=== PATIENT | female | born 1960 | race Caucasian/White ===

== ENCOUNTER 2017-04-30 12:21 | Emergency (ER) | payer OTHER ==
[2017-04-30 12:26] VITALS: TEMP 97.9
--- NOTE | 2017-04-30 12:33 | CPEKG ---
Heart Rate: 81 RR Interval: 741 P-R Interval: 176 QRSD Interval: 82 QT Interval: 360 QTC Interval: 418 P Monroe: 54 QRS Monroe: -60 T Wave Monroe: 24 EKG Severity - ABNORMAL ECG - EKG Impression: SINUS RHYTHM EKG Impression: LEFT ANTERIOR FASCICULAR BLOCK Electronically Signed By: Donna Jay 30-Apr-2017 14:52:50
[2017-04-30 13:04] LABS: PLATELET COUNT 332 10^3/uL (150-400)
--- NOTE | 2017-04-30 13:24 | EDPHY ---
H & P Stated Complaint: 3 days constant chest tightness. Time Seen by Provider: 04/30/17 12:37 HPI/ROS: CHIEF COMPLAINT: Chest tightness, dizziness HISTORY OF PRESENT ILLNESS: The patient is a 56 y/o female with a history of hypertension and possible prediabetes complaining of constant chest tightness for the last 3 days and dizziness for the last 2 days. She describes her pain as "a heavy, dull, tightness." She tried Tums thinking it could be reflux without improvement. Pain radiated mildly into upper left arm. She's had some intermittent diaphoresis. No nausea, vomiting, fever, pleuritic pain, leg swelling or pain, recent illness, recent travel, recent trauma. Her father from an [place] at age 49, which is why she ultimately came to ED for evaluation. REVIEW OF SYSTEMS: A 10 point review of systems was performed and is negative with the exception of the elements mentioned in the history of present illness. Past medical history: 1. Hypertension - 60mg Losartan 2. Hypothyroidism 3. Possible pre-diabetes markers on recent labs Past surgical history: Noncontributory Family history: Father of [place] at age 49 Social history: . Lives in [place]. PCP: ELVER Noguera. Adult Physical: General Appearance: Alert, no acute distress. BP 126/87 Eyes: Pupils equal and round, no conjunctival injection, no discharge. ENT, Mouth: Mucous membranes are moist, no oropharyngeal erythema or edema. Neck: No lymphadenopathy, supple. Respiratory: Lungs are clear to auscultation; no wheezes, rales, or rhonchi. Cardiovascular: Regular rate and rhythm; no murmur, rub, or gallop. Gastrointestinal: Abdomen is soft and non tender, no masses or organomegaly, bowel sounds normal. Skin: Warm and dry, no rashes, normal color. Back: Nontender to palpation over the thoracolumbar spine. Extremities: No lower extremity edema, no calf tenderness or swelling. Neurological: Alert and oriented. Moving all four extremities easily and equally. Psychiatric: Normal affect. - Personal History Current Tetanus Diphtheria and Acellular Pertussis (TDAP): Unsure - Medical/Surgical History Hx Asthma: No Hx Chronic Respiratory Disease: No Hx Diabetes: No Hx Cardiac Disease: No Hx Renal Disease: No Hx Cirrhosis: No Hx Alcoholism: No Hx HIV/AIDS: No Hx Splenectomy or Spleen Trauma: No Other PMH: HTN. hypothyroid. Chronic back pain. - Social History Smoking Status: Never smoked Constitutional: Initial Vital Signs Temperature (C) 36.6 C 04/30/17 12:21 Heart Rate 84 04/30/17 12:21 Respiratory Rate 18 04/30/17 12:21 Blood Pressure 138/103 H 04/30/17 12:21 O2 Sat (%) 95 04/30/17 12:21 O2 Delivery Mode Room Air Allergies/Adverse Reactions: No Known Allergies Allergy (Unverified 12/08/12 17:56) Home Medications: Medication Instructions Recorded Levothyroxine 04/30/17 Valsartan 04/30/17 Medical Decision Making - Diagnostics Imaging: I viewed and interpreted images myself ED Course/Re-evaluation: This is a 56 y/o female with a history of hypertension and possible pre- diabetes who presents with a 3-day history of chest tightness and 2-day history of dizziness. Her exam is unremarkable. Plan for standard chest pain work up. IV established. Labs drawn. Patient placed on antenna specialist and chest x-ray ordered. 324mg PO aspirin administered. The 12 lead EKG was interpreted by myself. Sinus rhythm. LAFB. See hard copy and /or "tracemaster" electronic copy for interpretation. Reevaluated patient and discussed work up. Chest x-ray is negative. EKG does not show ischemia. Labs are normal. Given that her symptoms have been present for 72 hours her troponin should be sensitive for cardiac etiology for patient' s symptoms. HEART score is 3, putting her at low risk (0.9-1.7%) of MACE within six weeks. I believe she will require provocative cardiac testing for further evaluation. Patient would like to proceed with this as an outpatient, so I have referred her to a bullet assembly press setter operator. Recommended trying ibuprofen or Tylenol for pain. Strict return precautions discussed. She is comfortable with discharge plan. Differential Diagnosis: I considered a ddx that includes but is not limited to ACS, pericarditis, PE, PNA, GERD. - Data Points Laboratory Results: Laboratory Results 04/30/17 12:35 04/30/17 12:39 Medications Given: Discontinued Medications Aspirin (Aspirin) 324 mg PO EDNOW ONE Stop: 04/30/17 13:32 Last Admin: 04/30/17 14:08 Dose: 324 mg Departure - Departure Disposition: Home, Routine, Self-Care Clinical Impression: Chest pain Condition: Good Instructions: Chest Pain (ED) Additional Instructions: 1. Call bullet assembly press setter operator today to arrange follow up for sometime in the next week. You will likely need provocative testing like a stress test to further evaluate your symptoms. 2. Keep copy of your EKG with you at all times. In case of recurrent symptoms, a future provider will then have a comparison study available. 3. Take Tylenol or ibuprofen for pain over the next few days. 4. Return to the nearest ED if your pain worsens dramatically, you develop shortness of breath, feel faint or lose consciousness, or have other worsening of condition. Adult Pain & Fever Control: We recommend Acetaminophen (Tylenol) and Ibuprofen (Motrin,Advil) for pain and fever control. When fever is high or pain severe, both drugs can be used at the same time, but at different intervals. Please note the time differences. Your dose is: Acetaminophen 650mg every 4 to 6 hours Ibuprofen 600mg every 6-8 hours with food Note: do not take Acetaminophen with Hydrocodone (Vicodin, Lortab) or Oxycodone (Percocet). These medications also contain Acetaminophen. No more than 3000mg of Acetaminophen should be taken in 24 hours (for an adult). Referrals: Caroline Noguera PA [Primary Care Provider] - As per Instructions Jessica Johnson MD [Medical Doctor] - As per Instructions Report Scribed for: Donna Jay Report Scribed by: Janna Farooq Date of Report: 04/30/17 Time of Report: 13:24 Physician Review and Approval Statement: 05/08/17 07:52 Portions of this chart were entered by a program medical director. I personally performed the HPI, PE, MDM. I have reviewed the chart and agree with the documentation.
[2017-04-30] MEDS ORDERED: ASPIRIN 81 MG CHEWABLE TAB PO ONE (13:31)
[2017-04-30 14:47] VITALS: BP 118/90; PULSE 77; RESP 15; O2SAT 96
== END 2017-04-30 14:46 | disposition home or self-care (01) ==
DX: R07.9 Chest pain, unspecified (principal); I10 Essential (primary) hypertension

== ENCOUNTER 2017-08-04 18:11 | Inpatient (IN) | payer OTHER ==
--- NOTE | 2017-08-04 18:47 | EDPHY ---
General - History Smoking Status: Never smoked Time Seen by Provider: 08/04/17 18:43 Narrative: CHIEF COMPLAINT: Right ear pain and skin infection HISTORY OF PRESENT ILLNESS: Patient presents with complaints of right ear pain and skin infection on the right side of her face. She woke Wednesday morning at 2:00 a.m. With pain in the right ear. She noticed it was red and warm. She went to an urgent care later that morning, yesterday morning. She was prescribed Keflex. She has been taking that every 6 hr, total of 7 doses. She reports that it has spread and is now more painful. She has had subjective fevers and some chills. No difficulty opening closing her mouth. No shortness of breath or difficulty breathing. No difficulty swallowing. She has no sore throat. She has no neck pain or stiffness. No headache. No chest pain. She is concerned she has not gotten better, and that it has actually gotten worse with the antibiotics. No other associated complaints or modifying factors. REVIEW OF SYSTEMS: Ten systems reviewed and are negative unless otherwise noted in the HPI PCP: Dr. Tucker SPECIALISTS: None PAST MEDICAL HISTORY: Hypothyroid, hypertension PAST SURGICAL HISTORY: Orthopedic surgeries x4. No hardware in place SOCIAL HISTORY: Nonsmoker. No alcohol use. Occasional marijuana use. Works in film and television. Lives here locally, independently FAMILY HISTORY: Noncontributory EXAMINATION General Appearance: Alert, no distress Head: normocephalic, atraumatic Eyes: Pupils equal and round, no conjunctival pallor or injection ENT, Mouth: Mucous membranes moist. Left ear is clear. The right pinna is erythematous and warm consistent with cellulitis. The right EAC is clear. The right TMs clear. There is no tenderness of the right mastoid. Neck: Normal inspection, supple, non-tender. Cellulitis as below. Respiratory: Lungs are clear to auscultation Cardiovascular: Regular rate and rhythm. No murmur Gastrointestinal: Abdomen is soft and nontender Back: non-tender, no bony abnormalities Neurological: A&O, nonfocal, normal gait Skin: Warm and dry, no rash. Cellulitis of the right pinna, preauricular space , right mandible and right side of the neck. There is no crepitus or palpable fluctuance. No necrosis. No vesicular lesions Extremities: Nontender, no pedal edema Psychiatric: Mood and affect normal DIFFERENTIAL DIAGNOSES: Including but not limited to cellulitis, otitis externa, mastoiditis, facial abscess MDM: 6:50 p.m. Right ear and facial cellulitis with no signs of abscess. There is no otitis media or evidence of mastoiditis. She has no trismus. Her airway is widely patent and her vitals are within normal limits. She has been on Keflex since yesterday morning, with a total of 7 doses taken. She has failed outpatient therapy and will likely need admission to the hospital. I will discuss with Dr. Johnson. 7:05 p.m. Case discussed with Dr. Johnson and he will evaluate the patient. Blood cultures and lactic acid ordered. Vancomycin ordered after blood cultures obtained. 7:40 p.m. Laboratory studies unremarkable. Lactic acid negative. Vital signs remained stable. 8:10 p.m. Case discussed with hospitalist Dr. Ozuna. She will be admitted to his service. She is admitted for facial cellulitis failure of outpatient. He requested inpatient status to his service. She is admitted in stable condition. SUPERVISION: Patient was independently examined, but I discussed the case with my secondary supervising physician Dr. Johnson ([facility]) Medical Decision Making: Independent physician evaluation: I evaluated and participated in the management of the patient. I also evaluated the patient independently. My co-signature indicates that I have reviewed this chart and I agree with the findings and plan of care as documented. My personal H&P findings include: The patient presents to the ED with increasing erythema, right auricular pain and swelling not improved with oral Keflex. The patient was started on antibiotics for mild erythematous changes earlier in the week. She presents to the ED tonight after progressive pain, swelling erythema. Patient does have a past medical history significant for hypertension. She denies history of diabetes. Physical exam General Appearance: Alert, no distress Eyes: PERRLA, no proptosis ENT, Mouth: Edema noted throughout the right ear, face and neck Respiratory: There are no retractions, lungs are clear to auscultation Cardiovascular: Regular rate and rhythm Gastrointestinal: Abdomen is soft and nontender, no masses, bowel sounds normal Neurological: 5/5 strength noted all 4 extremities, no facial nerve palsy appreciated Skin: Erythematous changes as described above Musculoskeletal: Neck is supple nontender Extremities: symmetrical, full range of motion ED course The patient had an IV established. She had blood cultures x2 obtained. The patient is started on IV vancomycin for facial cellulitis which has been refractory to Keflex. The patient will require admission to the hospital for further evaluation and management. (Hector Johnson) - Objective Vital Signs: Initial Vital Signs Temperature (C) 98.6 F 08/04/17 18:19 Heart Rate 82 08/04/17 18:19 Respiratory Rate 17 08/04/17 18:19 Blood Pressure 153/100 H 08/04/17 18:19 O2 Sat (%) 97 08/04/17 18:19 O2 Delivery Mode Room Air Allergies/Adverse Reactions: No Known Allergies Allergy (Verified 08/04/17 18:18) Home Medications: Medication Instructions Recorded Levothyroxine [Synthroid 175 mcg 175 mcg PO DAILY06 04/30/17 (*)] Valsartan [Diovan (*)] 160 mg PO DAILY 04/30/17 Laboratory Results: Laboratory Results 08/04/17 19:24 08/04/17 19:24 08/04/17 08/04/17 08/04/17 19:24 19:24 19:24 WBC 7.89 10^3/uL 10^3/uL (3.80-9.50) RBC 4.40 10^6/uL 10^6/uL (4.18-5.33) Hgb 13.7 g/dL g/dL (12.6-16.3) Hct 40.2 % % (38.0-47.0) MCV 91.4 fL fL (81.5-99.8) MCH 31.1 pg pg (27.9-34.1) MCHC 34.1 g/dL g/dL (32.4-36.7) RDW 12.9 % % (11.5-15.2) Plt Count 198 10^3/uL 10^3/uL (150-400) MPV 10.5 fL fL (8.7-11.7) Neut % (Auto) 69.8 % % (39.3-74.2) Lymph % (Auto) 18.3 % % (15.0-45.0) Stewart % (Auto) 9.8 % % (4.5-13.0) Eos % (Auto) 1.1 % % (0.6-7.6) Baso % (Auto) 0.6 % % (0.3-1.7) Nucleat RBC Rel Count 0.0 % % (0.0-0.2) Absolute Neuts (auto) 5.51 10^3/uL 10^3/uL (1.70-6.50) Absolute Lymphs (auto) 1.44 10^3/uL 10^3/uL (1.00-3.00) Absolute Monos (auto) 0.77 10^3/uL 10^3/uL (0.30-0.80) Absolute Eos (auto) 0.09 10^3/uL 10^3/uL (0.03-0.40) Absolute Basos (auto) 0.05 10^3/uL 10^3/uL (0.02-0.10) Absolute Nucleated RBC 0.00 10^3/uL 10^3/uL (0-0.01) Immature Gran % 0.4 % % (0.0-1.1) Immature Gran # 0.03 10^3/uL 10^3/uL (0.00-0.10) VBG Lactic Acid 0.8 mmol/L mmol/L (0.7-2.1) Sodium 138 mEq/L mEq/L (135-145) Potassium 3.7 mEq/L mEq/L (3.5-5.2) Chloride 104 mEq/L mEq/L (97-110) Carbon Dioxide 23 mEq/l mEq/l (22-31) Anion Gap 11 mEq/L mEq/L (8-16) BUN 15 mg/dL mg/dL (7-23) Creatinine 0.8 mg/dL mg/dL (0.6-1.0) Estimated GFR > 60 Glucose 98 mg/dL mg/dL (70-100) Calcium 9.3 mg/dL mg/dL (8.5-10.4) Medications Given: Discontinued Medications Vancomycin/Sodium Chloride (Vancomycin 1 Gm (Premix)) 250 mls @ 250 mls/hr IV EDNOW ONE PRN Reason: Protocol Stop: 08/04/17 20:11 Last Admin: 08/04/17 19:40 Dose: 250 mls Sodium Chloride (Ns) 1,000 mls @ 0 mls/hr IV ONCE ONE; Wide Open PRN Reason: Protocol Stop: 08/04/17 19:42 Last Admin: 08/04/17 19:45 Dose: 1,000 mls Departure - Departure Disposition: [facility] Inpatient Acute Clinical Impression: Cellulitis Qualifiers: Site of cellulitis: face Qualified Code(s): L03.211 - Cellulitis of face Condition: Good
[2017-08-04] MEDS ORDERED: VANCOMYCIN HCL/NORMAL SALINE 250 ML IV ONE (19:12)
[2017-08-04 19:31] LABS: PLATELET COUNT 198 10^3/uL (150-400)
[2017-08-04] MEDS ORDERED: NS 1,000 ML IV ONE (19:41)
[2017-08-04] MEDS ORDERED: ONDANSETRON 4 MG/2 ML VIAL IVP PRN (20:41)
[2017-08-04] MEDS ORDERED: ONDANSETRON DISINTEGRATING 4 MG TAB PO PRN (20:41)
[2017-08-04] MEDS ORDERED: oxyCODONE IR 5 MG TAB PO PRN (20:41)
[2017-08-04] MEDS ORDERED: diphenhydrAMINE 25 MG CAP PO PRN (22:16)
--- NOTE | 2017-08-04 22:23 | PDGENHP ---
History and Physical - Chief Complaint Acute face pain - History of Present Illness Primary care provider: Dr. Christina Tucker HPI: 56-year-old female presenting with acute face pain characterized as a burning, warm pain located on the right face and right year with associated swelling of the right ear and right cheek. Onset of symptoms was Wednesday morning at 2:00 a.m., and duration has been persistent worsening thereafter. The patient went to urgent care and received a prescription for Keflex, and she has been adherent to the medication, taking 7 subsequent dosages, and the affected area continues to spread and worsen. She denies any recent trauma to the affected area but she does endorse recently inserting an earring with some difficulty, after not wearing earrings for a couple months. She does use Q- Tips but has not noted any recent ear discharge or chin consistency of her ear wax. On the day of presentation, she has experienced some subjective fever and chills. The discomfort has been somewhat alleviated by IV vancomycin received in the emergency department, and the patient now considers the area more pruritic in nature. History Information - Allergies/Home Medication List Allergies/Adverse Reactions: No Known Allergies Allergy (Verified 08/04/17 18:18) Home Medications: Levothyroxine [Synthroid 175 mcg (*)] 175 mcg PO DAILY06 04/30/17 [Last Taken ] Valsartan [Diovan (*)] 160 mg PO DAILY 04/30/17 [Last Taken 08/03/17] I have personally reviewed and updated: family history, medical history, social history, surgical history - Past Medical History hypertension Additional medical history: Hypothyroidism - Surgical History Additional surgical history: Several orthopedic surgeries - Family History Additional family history: No family history of head or neck cancers - Social History Smoking Status: Never smoked Alcohol Use: None Drug Use: Marijuana (Occasional) Additional social history: Independent in ADLs Review of Systems Review of Systems: ROS: 10pt was reviewed & negative except for what was stated in HPI & below Constitutional: Reports: chills, fever Skin: Reports: change in color, other (Erythema, soft tissue edema) Physical Exam Physical Exam: Temp Pulse Resp BP Pulse Ox 36.8 C 68 16 142/103 H 95 08/04/17 21:37 08/04/17 21:37 08/04/17 21:37 08/04/17 21:37 08/04/17 21:37 Constitutional: no apparent distress, appears nourished, not in pain, uncomfortable Eyes: PERRL, anicteric sclera, EOMI Ears, Nose, Mouth, Throat: other (Confluent edema over the right ear without any visible discharge from the outer ear canal, no oral lesions or evidence of dental caries within the right maxillary or right mandibular teeth) Cardiovascular: regular rate and rhythym, no murmur, rub, or gallop, No edema Respiratory: no respiratory distress, no rales or rhonchi, clear to auscultation Gastrointestinal: normoactive bowel sounds, soft, non-tender abdomen, no palpable masses Skin: other (Confluency blanching erythema right face extending from the cheek beyond the right year, with mild tenderness and fluctuance across the entire right ear) Neurologic: AAOx3, sensation intact bilaterally, No weakness Psychiatric: interacting appropriately, not anxious, not encephalopathic, thought process linear Lymph, Heme, Immunologic: other (Tender right anterior cervical lymphadenopathy , no right supraclavicular lymphadenopathy) Lab Data & Imaging Review 08/04/17 19:24 08/04/17 19:24 WBC 7.89 10^3/uL (3.80-9.50) 08/04/17 19:24 RBC 4.40 10^6/uL (4.18-5.33) 08/04/17 19:24 Hgb 13.7 g/dL (12.6-16.3) 08/04/17 19:24 Hct 40.2 % (38.0-47.0) 08/04/17 19:24 MCV 91.4 fL (81.5-99.8) 08/04/17 19:24 MCH 31.1 pg (27.9-34.1) 08/04/17 19:24 MCHC 34.1 g/dL (32.4-36.7) 08/04/17 19:24 RDW 12.9 % (11.5-15.2) 08/04/17 19:24 Plt Count 198 10^3/uL (150-400) 08/04/17 19:24 MPV 10.5 fL (8.7-11.7) 08/04/17 19:24 Neut % (Auto) 69.8 % (39.3-74.2) 08/04/17 19:24 Lymph % (Auto) 18.3 % (15.0-45.0) 08/04/17 19:24 [place] % (Auto) 9.8 % (4.5-13.0) 08/04/17 19:24 Eos % (Auto) 1.1 % (0.6-7.6) 08/04/17 19:24 Baso % (Auto) 0.6 % (0.3-1.7) 08/04/17 19:24 Nucleat RBC Rel Count 0.0 % (0.0-0.2) 08/04/17 19:24 Absolute Neuts (auto) 5.51 10^3/uL (1.70-6.50) 08/04/17 19: Absolute Lymphs (auto) 1.44 10^3/uL (1.00-3.00) 08/04/17 19:24 Absolute Monos (auto) 0.77 10^3/uL (0.30-0.80) 08/04/17 19:24 Absolute Eos (auto) 0.09 10^3/uL (0.03-0.40) 08/04/17 19:24 Absolute Basos (auto) 0.05 10^3/uL (0.02-0.10) 08/04/17 19: Absolute Nucleated RBC 0.00 10^3/uL (0-0.01) 08/04/17 19:24 Immature Gran % 0.4 % (0.0-1.1) 08/04/17 19: Immature Gran # 0.03 10^3/uL (0.00-0.10) 08/04/17 19:24 VBG Lactic Acid 0.8 mmol/L (0.7-2.1) 08/04/17 19:24 Sodium 138 mEq/L (135-145) 08/04/17 19:24 Potassium 3.7 mEq/L (3.5-5.2) 08/04/17 19:24 Chloride 104 mEq/L (97-110) 08/04/17 19:24 Carbon Dioxide 23 mEq/l (22-31) 08/04/17 19:24 Anion Gap 11 mEq/L (8-16) 08/04/17 19:24 BUN 15 mg/dL (7-23) 08/04/17 19:24 Creatinine 0.8 mg/dL (0.6-1.0) 08/04/17 19:24 Estimated GFR > 60 08/04/17 19:24 Glucose 98 mg/dL (70-100) 08/04/17 19:24 Calcium 9.3 mg/dL (8.5-10.4) 08/04/17 19:24 Assessment & Plan Assessment: 56-year-old female presents with acute right facial cellulitis refractory to oral antibiotic therapy Plan: 1. Cellulitis. Acute, new problem this provider, further workup indicated. Periauricular and right facial with likely reactive lymph nodes in the right anterior cervical chain, refractory to appropriate dosing of Keflex, with most likely offending organism either staph or strep, high risk location given potential for extension into the neck soft tissue -patient has experienced some symptomatic improvement after receiving IV vancomycin, continue 1 g Q 12 and gauge effect -blood culture sent -continue monitor white blood cell count -if area appears to be worsening tomorrow, further evaluate the outer and middle ear and consider ENT consultation -currently no evidence of inner ear involvement with no evidence of vertigo on rotational movement of her head or positional changes -get Infectious Disease consultation if affected area does not appear to be improving tomorrow, to consider organisms outside our current spectrum of coverage including Pseudomonas -supportively treat with pain medications, Benadryl 2. Osteoarthritis. Chronic, continue supportive care, reviewed outside records including 11/16/2012 outpatient consultation note by Dr. Casey akbar, for degenerative osteoarthritis in the setting of previous right knee ACL surgery, and outlined the patient's previous medical history 3. Hypertension. Chronic, continue valsartan Diet. Regular Prophylaxis. Low risk patient, SCDs Code. Full Disposition. Anticipated discharge is uncertain this time, anticipated length stay is greater than 48 hr for reasonable medical necessity including cellulitis in a high risk location which has been refractory to appropriate oral antibiotic dosing, will likely require 48 hr of IV antibiotics and then transition to oral antibiotics thereafter. Discussed with Gus Conner, emergency department provider, we both agree that the patient requires inpatient admission for IV antibiotics given that she has failed oral antibiotics as an outpatient.
[2017-08-05] MEDS: ACETAMINOPHEN 325 MG TAB PO PRN ×4 (04:34→22:49)
[2017-08-05] MEDS: LEVOTHYROXINE 175 MCG TAB PO SCH (05:07)
[2017-08-05 05:17] LABS: PLATELET COUNT 225 10^3/uL (150-400)
[2017-08-05] MEDS ORDERED: VANCOMYCIN HCL/NORMAL SALINE 250 ML IV SCH (07:00)
[2017-08-05] MEDS: VALSARTAN 160 MG TAB PO SCH (07:56)
--- NOTE | 2017-08-05 08:48 | PDMN ---
Medical Necessity Medical necessity: M70 Cellulitis A-2 days: acute cellulitis of periauricular and R facial, high risk location, failed outpt , progression of infection, further monitoring and tx needed : anticipated > 2 midnights.
--- NOTE | 2017-08-05 12:09 | SOAPPROG ---
SOAP Progress Note Assessment/Plan: Assessment/Plan: This 56 year old female is suffering from right cheek/ear cellulitis without any signs of obvious abscess. We discussed viral vs bacterial. A culture was taken of small pustule right upper cheek and will be sent to the lab. Recommend infectious disease consult. *Patient was also evaluated by Dr. Brewster* 08/05/17 13:44 Subjective: Patient reports that Wednesday morning she woke up with swelling of right ear. She presented to urgent care and was prescribed a course of keflex. Swelling persisted and right cheek, ear, and chest became erythematous. She presented to the ED yesterday and was admitted with IV vancomycin. She states there has been no change in tenderness, itching, swelling, redness since starting vanco, but denies progression. Subjective fevers/chills have subsided. She denies any hearing loss, tinnitus, otorrhea, vertigo. No recent URI. Objective: Vital Signs Temp Pulse Resp BP Pulse Ox 37.0 C 76 16 134/87 H 93 08/05/17 08:00 08/05/17 08:00 08/05/17 08:00 08/05/17 08:00 08/05/17 08:00 Laboratory Results 08/05/17 04:47 08/05/17 04:47 08/04/17 08/05/17 08/06/17 05:59 05:59 05:59 Intake Total 1000 Balance 1000 - Time Spent With Patient Time Spent With Patient: 25 minutes spent with patient. Physical Exam - Physical Exam General Appearance: alert, no apparent distress EENT: PERRL/EOMI, other (Right ear- diffuse erythema, edema. No fluctuance noted. Very tender to papation. EAC normal, TM normal with good movement on pneumotoscopy. A few pinpoint pustules right upper cheeck and postauricularly. Erytheam extends to hair line and midline right cheeck. Tender infra-aricular lymph node.) Neck: non-tender, full range of motion, supple, normal inspection Respiratory: normal breath sounds Extremities: normal range of motion Neuro/Psych: no motor/sensory deficits, alert, normal mood/affect, oriented x 3 , No EOM palsy, No motor weakness, No sensory deficit ICD10 Worksheet Patient Problems: Problems Problem Status Onset Cellulitis Acute
--- NOTE | 2017-08-05 12:31 | ASMTCMCOM ---
CM Note CM Note Notes: Spoke w/RN, pt is independent with ADLs, anticipate will dc home with support of when medically stable. CM available for any changes. DC Plan: Independent Date Signed: 08/05/2017 12:31 PM Electronically Signed By:Ana Cristina Cortes RN
--- NOTE | 2017-08-05 13:54 | HOSPPROG ---
Hospitalist Progress Note Assessment/Plan: * Facial/neck cellulitis - failed PO Keflex -IV Vanco -ID and ENT consult -? need imaging - per ENT no suspicion for abscess * HTN -valsartan * Hypothyroid -Synthroid Subjective: Feels no better Objective: Vital Signs Temp Pulse Resp BP Pulse Ox 36.5 C 76 18 148/95 H 96 08/05/17 12:00 08/05/17 12:00 08/05/17 12:00 08/05/17 12:00 08/05/17 12:00 Laboratory Results 08/05/17 04:47 08/05/17 04:47 08/04/17 08/05/17 08/06/17 05:59 05:59 05:59 Intake Total 1000 Balance 1000 d/w Dr. Brown - ID to consult d/w ENT ELVER Arroyo ICD10 Worksheet Patient Problems: Problems Problem Status Onset Cellulitis Acute
[2017-08-05] MEDS ORDERED: IOPAMIDOL (ISOVUE-300) 100 ML BTL ONE (14:53)
[2017-08-05] MEDS ORDERED: ceFAZolin 2 GM/DEXTROSE 100 ML IV SCH (17:30)
[2017-08-05] MEDS: valACYclovir 500 MG TAB PO SCH ×2 (18:05→22:33)
[2017-08-05] MEDS: ceFAZolin 2 GM/SWFI 2 GM/20 ML SYR IVP SCH (18:09)
--- NOTE | 2017-08-05 23:00 | GCON ---
[f rep st] CONSULTATION INFECTIOUS DISEASE CONSULTATION DATE OF CONSULTATION: 08/05/2017 REQUESTING PHYSICIAN: Katie Kidd MD REASON FOR CONSULTATION: Right facial cellulitis. HISTORY OF PRESENT ILLNESS: Patient is a 56-year-old female, without significant past medical histor y, whom I am asked to see in consultation for a right-sided facial cellulitis. Patient describes dev eloping abrupt onset of right-sided facial pain beginning adjacent to the right ear approximately 2 d ays ago. This subsequently affected her right ear and right cheek. She also noted a bump over the r ight preauricular region which was painful. She describes having low-grade temperatures but did not register any temperature higher than 100. She did not have rigors. Based on these findings, she was seen at [facility] and started on cephalexin for cellulitis. Patient had pr ogressive symptoms despite cephalexin prompting further evaluation, at which point in time she was ad mitted for treatment of facial cellulitis. Patient has not had any recent piercings of the ear. She does use earrings. She does not note any recent injury to her ear. Patient does note that the eryt delbert has subsequently spread over the anterior neck. The area is pruritic and painful in nature. Joni rodriguez was started on IV vancomycin, which she has received 2 doses and feels like things are mildly i mproved. She does have a history of chickenpox as a child. No intraoral lesions noted. No sore thr oat. No recent dental problems. Given the above findings, I am now asked to assist in her ongoing m anagement. PAST MEDICAL HISTORY: 1. Hypertension. 2. hypothyroidism. PAST SURGICAL HISTORY: Orthopedic surgery. CURRENT MEDICATIONS: 1. Vancomycin 1 g IV q.12 hours. 2. Synthroid 175 mcg p.o. daily. 3. Valsartan 160 mg p.o. daily. ALLERGIES: No known drug allergies. SOCIAL HISTORY: Patient does not smoke. Occasional alcohol use. Patient recently traveled to [facility] for several days, returning at the end of July. No animal exposures. FAMILY HISTORY: Coronary artery disease. REVIEW OF SYSTEMS: Outside that noted in the HPI, the remainder of a 10-system review is unremarkabl e. PHYSICAL EXAMINATION: VITAL SIGNS: Temperature 36.9, heart rate 80, respiratory rate 16, blood pres sure 119/81. GENERAL: Patient is well nourished and well developed, in no acute distress. She appe ars nontoxic. HEENT: There is erythema present over the entirety of the right ear, preauricular reg ion, right mandibular region extending onto the right anterior neck. There is some crusting within t he right ear externally. There are no areas of necrosis. There are pinpoint, whitish areas overlyin g the preauricular region, but no medardo vesicles or pustules. The area is warm and tender to palpati on throughout. No intraoral lesions noted. No nasal discharge. No trismus. There is no scleral ic terus, conjunctival injection, or conjunctival petechiae. NECK: See HEENT exam. No cervical adenop athy present. CHEST: Clear to auscultation bilaterally without adventitious sounds. Respiratory ef fort is normal. CARDIOVASCULAR: Regular rate and rhythm without murmurs, gallops, or rubs. ABDOMEN : Soft, nontender, nondistended. There is no palpable organomegaly. Bowel sounds are present. MUS CULOSKELETAL: There is no cyanosis, clubbing, or edema. SKIN: See HEENT and NECK exam; no stigmata of endocarditis. Skin is warm and dry to touch. NEUROLOGIC: Patient is alert and interacts approp riately with examiner. Cranial nerves 2-12 are grossly intact. Sensation is grossly intact. Muscle tone and bulk are normal. LYMPHATICS: There is a preauricular node which is tender and palpable on the right. No cervical or supraclavicular nodes. LABORATORY DATA: White blood cell count 7.1, hematocrit 40.4, platelets 225, neutrophils 65%, lympho cytes 21%, monocytes 12%. Serum creatinine 0.7. AST 72, ALT 97, bilirubin 0.8, alkaline phosphatase 65. Venous lactate 0.8. Blood cultures x2 sets are pending. Gram stain from the cheek shows no or ganisms. CT scan of the neck shows findings consistent with cellulitis of the right side of the face and neck with some associated adenopathy. IMPRESSION: Right-sided facial erythema with involvement of the right ear and anterior neck. Differ ential diagnosis is primarily for cellulitis versus possible atypical presentation of shingles. The absence of significant fever or leukocytosis are unusual if clinical findings are due to cellulitis. No medardo vesicles and distribution is slightly atypical for a single dermatome but at times, zoster can present in an unusual fashion as well. If cellulitis is etiology, most likely will be due to str eptococcal etiology with Staphylococcus aureus also of consideration. I think community associated m ethicillin-resistant Staphylococcus aureus of low likelihood given clinical findings. RECOMMENDATIONS: 1. Ancef 2 g IV q.8 hours. 2. Discontinue vancomycin. 3. Begin Valtrex 1 g orally 3 times per day. 4. Swab was obtained of scabbing within ear and over pinpoint lesions on cheek to assess for VZV by PCR. 5. Follow up blood cultures and clinical course as available. Thank you for this consultation. We will continue to follow the patient with you. /[id number]/MODL
[2017-08-06] MEDS: ceFAZolin 2 GM/SWFI 2 GM/20 ML SYR IVP SCH ×3 (01:05→17:15)
[2017-08-06] MEDS: LEVOTHYROXINE 175 MCG TAB PO SCH (07:06)
[2017-08-06] MEDS: ACETAMINOPHEN 325 MG TAB PO PRN ×3 (07:06→21:06)
[2017-08-06] MEDS: valACYclovir 500 MG TAB PO SCH ×3 (09:09→21:06)
[2017-08-06] MEDS: VALSARTAN 160 MG TAB PO SCH (09:10)
--- NOTE | 2017-08-06 14:53 | PCMIDPN ---
Assessment/Plan: Assessment/Plan: * Right facial/neck erythema: Marked clinical improvement today with significant decrease in erythema over neck and ear. Remains tender in lymphatic distribution. Given degree of improvement over short course, favor cellulitis over shingles as etiology. Will continue cefazolin as not quite ready to transition to oral antibiotic therapy. Anticipate this will be likely tomorrow. Suggest dose of ceftriaxone 2 g IV prior to discharge, then completion of therapy with Augmentin 875 mg orally twice daily times 7 days. Will arrange for follow-up in our office next week. Will continue Valtrex in interim while VZV PCR is pending. 08/06/17 14:50 Subjective: Patient feels better with decrease her redness over neck. Continues to have pain over pre-auricular region and anterior neck. Less ear pain. Objective: Vital Signs Temp Pulse Resp BP Pulse Ox 36.4 C 79 14 138/88 H 93 08/06/17 11:09 08/06/17 11:09 08/06/17 11:09 08/06/17 11:09 08/06/17 11:09 Microbiology 08/05/17 12:15 Gram Stain - Final Cheek - Swab Laboratory Results 08/05/17 04:47 08/05/17 04:47 08/05/17 08/06/17 08/07/17 05:59 05:59 05:59 Intake Total 1000 550 Balance 1000 550 Cefazolin # 1 Antibiotics # 2 Valtrex # 1 VZV PCR pending Blood cultures x2 no growth - Physical Exam General Appearance: alert, no apparent distress EENT: other (Erythema more focally localized over pre-auricular region with some jennie quality; tiny pustular appearing lesion in this region but no active vesicles; erythema and edema over ear are significantly decreased; erythema over mandibular region and anterior neck significantly decreased; remains tender over areas of erythema and prior erythema, crusting present with an external ear) Neck: other (Anterior erythema resolved; remains tender in lymphatic distribution) ICD10 Worksheet Patient Problems: Problems Problem Status Onset Cellulitis Acute
--- NOTE | 2017-08-06 15:41 | HOSPPROG ---
Hospitalist Progress Note Assessment/Plan: * Facial/neck cellulitis - failed PO Keflex -IV ancef -no evidence for abscess -improving but not ready for transition to PO * HTN -valsartan * Hypothyroid -Synthroid Subjective: Better Objective: Vital Signs Temp Pulse Resp BP Pulse Ox 36.4 C 79 14 138/88 H 93 08/06/17 11:09 08/06/17 11:09 08/06/17 11:09 08/06/17 11:09 08/06/17 11:09 Microbiology 08/05/17 12:15 Gram Stain - Final Cheek - Swab Laboratory Results 08/05/17 04:47 08/05/17 04:47 08/05/17 08/06/17 08/07/17 05:59 05:59 05:59 Intake Total 1000 550 Balance 1000 550 d/w Dr. Brown - probable discharge tomorrow CT neck - no abscess - Physical Exam Constitutional: no apparent distress, appears nourished, not in pain Cardiovascular: regular rate and rhythym, no murmur, rub, or gallop Respiratory: no respiratory distress, no rales or rhonchi, clear to auscultation Gastrointestinal: normoactive bowel sounds, soft, non-tender abdomen, no palpable masses Skin: warm, erythema (much less), induration (less), rash Neurologic: AAOx3, sensation intact bilaterally Psychiatric: interacting appropriately, not anxious, not encephalopathic, thought process linear ICD10 Worksheet Patient Problems: Problems Problem Status Onset Cellulitis Acute
[2017-08-07] MEDS: ceFAZolin 2 GM/SWFI 2 GM/20 ML SYR IVP SCH ×2 (01:23→10:09)
[2017-08-07] MEDS: LEVOTHYROXINE 175 MCG TAB PO SCH (05:13)
[2017-08-07 07:37] VITALS: BP 136/94
[2017-08-07] MEDS: VALSARTAN 160 MG TAB PO SCH (09:09)
[2017-08-07] MEDS: valACYclovir 500 MG TAB PO SCH (09:10)
[2017-08-07] MEDS ORDERED: cefTRIAXone 2 GM in STERILE WATER INJ 20 ML IV SCH (10:00)
--- NOTE | 2017-08-07 10:31 | GDS ---
[f rep st] DISCHARGE SUMMARY DISCHARGE DIAGNOSES: 1. Facial and neck cellulitis. 2. Hypertension. 3. Hypothyroidism. HISTORY: The patient is a 56-year-old female who developed cellulitis encompassing her right ear and extending down onto her neck, she was given oral Keflex as an outpatient, but cellulitis progressed and worsened, so she presented to the emergency room. She was started on IV antibiotics. It was fel t to be likely strep in origin, so IV Ancef was used. After multiple days of inpatient IV antibiotic s. She has improved dramatically and is ready for discharge home today, and transition to oral antib iotics. She will receive a one time 2 g IV ceftriaxone dose prior to discharge. This will cover her for the next 24 hours, and she can start oral Augmentin tomorrow morning. This plan was obtained in conjunction with Dr. Brown. He was also concerned for possible atypical shingles presentation, and a small area of fluid discharge was sent for HSV and VZV, and those remain pending. Dr. Brown would li ke her to continue on Valtrex until those PCRs have returned. He will see her in the office for foll owup on Wednesday. The patient requests p.r.n. Diflucan dose, as she is concerned she may develop a ye ast infection on the Augmentin. DISCHARGE MEDICATIONS: Please see computerized record for full detailed list. New medications: 1. Augmentin 875 mg p.o. b.i.d. for 7 days. First dose tomorrow morning. 2. Valtrex 1000 mg p.o. t.i.d. 3. Diflucan 150 mg p.o. one time as needed for yeast infection. ADDITIONAL DISCHARGE INSTRUCTIONS: Dr. Brown would like to see her in follow up, this upcoming . The patient will call for appointment Wednesday. Greater than 30 minutes time was spent arranging this discharge. Patient seen and examined by me on day of discharge. /[id number]/MODL
--- NOTE | 2017-08-07 10:49 | ASMTCMCOM ---
CM Note CM Note Notes: Pt. to d/c independently today. Date Signed: 08/07/2017 10:48 AM Electronically Signed By:Dina Booker LCSW
== END 2017-08-07 11:00 | disposition home or self-care (01) | DRG 603 ==
LOC: F3E 21:05
PROVIDERS: ADMIT Internal Medicine; ATTEND Internal Medicine
DX: L03.211 Cellulitis of face (principal); L03.221 Cellulitis of neck; I10 Essential (primary) hypertension; E03.9 Hypothyroidism, unspecified; B95.7 Other staphylococcus as the cause of diseases classified elsewhere
CPT/HCPCS: 87529-90; 96365; J0690; J0696; J3370; Q9967